=== PATIENT | female | born 1940 | race Caucasian/White ===

== ENCOUNTER → 2019-06-14 | Day surgery (SDC) | payer MEDICARE, BC, MEDICAID ==
[~2019-06-14] MED LIST: ALLOPURINOL 30300 M2 PO; AMITRIPTYLINE H10 M3 PO; ASA81BEC PO; AZELASTINE137 MCG/0. INH; BENADRYL25 MG PO; COLACE100 MG PO; ELMIRON 100 MG100 M1 PO; EMLA CREAM5 GM TOP; HEPARIN; LOPERAMIDE2 MG PO; MIDODRINE HCL 55 M1 PO; NEPHROCAPS PO; NEURONTIN 300300 M1 PO; NORCO 5-325 TA1 EAC1 PO; OMEPRAZOLE 20 M20 M1 PO; PAXIL10 MG PO; PHOSLO667 M1 PO; PLAVIX 75 MG TA75 MG PO; PROCHLORPERAZINE5 M2 PO; RENVELA0.8 GM PO; SODIUM BICARBO650 M3 PO; SODIUM CHLORIDE; TYLENOL325 MG PO; VITAMIN D400 UNIT PO; ZYVOX600 MG PO
[2019-06-14 07:16] LABS: HEMATOCRIT 33.4 % (37.0-47.0); HEMOGLOBIN 11.2 gm/dL (12.0-15.0); MCH 33.8 pg (26.0-34.0); MCHC 33.6 g/dL (28.0-37.0); MCV 100.5 fL (80.0-100.0); MPV 9.9 fl. (7.2-11.1); RBC 3.33 mil/uL (4.20-5.00); RDW-CV 14.5 % (10.5-14.5); WBC 5.4 thou/uL (4.0-11.0)
[2019-06-14 07:23] LABS: CALCIUM 9.2 mg/dL (8.5-10.1); CREATININE 3.7 mg/dL (0.6-1.3); POTASSIUM 4.1 mmol/L (3.5-5.1)
--- NOTE | 2019-06-14 13:30 | EKG ---
[place] [address] ELECTROCARDIOGRAM REPORT Name: NIHARIKA SEALS Room: [facility]#: [id number] Admission: 06/14/19 Attend Phys: Jered Varela DO Discharge: Date of : 36 Report #: [id number] THIS REPORT FOR: //name// [facility] Test Date: 2019-06-14 Test Time: 07:37:42 Pat Name: NIHARIKA SEALS Department: Room: Gender: F Gas Main And Line Fitter: MANNY : 1940 Requested By: Jered Varela Order Number: [id number] Reading MD: Tal Ramirez Measurements Intervals [place] Rate: 70 P: 25 VA: 178 QRS: 43 QRSD: 142 T: 36 QT: 445 QTc: 481 Interpretive Statements Sinus rhythm Right bundle branch block Compared to ECG 08/11/2015 08:20:03 Atrial premature complex(es) no longer present Electronically Signed On 06-14-2019 13:30:18 MEDICAL VAN DRIVER by Tal Ramirez [email or web address] <ELECTRONICALLY SIGNED> By: Tal Ramirez MD, [facility] 06/14/19 1330 0737 0737 Tal Ramirez MD, FACC /EPI
--- NOTE | 2019-06-18 07:40 | OP ---
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 OPERATION: Open revision of right upper extremity arteriovenous fistula with interposition AV graft with a 7 mm Acuseal. SURGEON: Jered Varela DO ENVIRONMENTAL COMPLIANCE OFFICER: ANABEL Regalado ANESTHESIA: LMA. ESTIMATED BLOOD LOSS: 150 mL. FLUIDS: About 500 crystalloid. URINE OUTPUT: None. SPECIMENS: None. COMPLICATIONS: None. IMPLANTS: A 7 mm Acuseal graft in the right upper arm. FINDINGS: She had two large aneurysmal segments in the fistula in the mid upper arm. I was able to resect these two normal vein proximally and distally. The aneurysmal segments again were completely resected. A 7 mm Acuseal graft was placed in an interposition fashion. There was excellent thrill noticed in the fistula and good flow in the graft. I believe the graft can be used immediately for dialysis needs. CLINICAL HISTORY: The patient is an 79-year-old woman with end-stage renal disease, who has been dialyzing through brachiobasilic right upper extremity fistula. This has become aneurysmal and have been having difficulty with access. She is in need of revision for more durable access. [address] [address] OPERATIVE REPORT Name: NIHARIKA SEALS Maylin Room: [facility]#: [id number] Admission: 06/14/19 Attend Phys: Jered Varela DO Discharge: Date of : 38 Report #: [id number] DESCRIPTION OF PROCEDURE: After informed consent was obtained, the patient was taken to the operating room and placed on the OR bed in the supine position. She was administered LMA anesthesia by the Anesthesia team. Right upper extremity was prepped and draped in usual sterile fashion. Full timeout was performed identifying correct patient and procedure. Next, a longitudinal incision was made on the medial aspect of the right upper arm. Dissection was carried down through skin and subcutaneous tissue, both sharp and electrocautery. The aneurysmal segments of the fistula were identified. It was circumferentially dissected free and completely mobilized. This was taken back to normal vein proximally and distally at the fistula. I then administered 5000 units of intravenous heparin. This was allowed to circulate for 3 minutes. I then occluded the veins proximally and distally, resected the aneurysmal segment and then tailored to 7 mm Acuseal graft, performed end-to-end anastomosis with the vein proximally and distally with running 6-0 Prolene suture. Prior to completion of the suture line, the graft was flushed with heparinized saline allowed to forward and backbled. A skin flap was created and the graft was positioned in a gentle curve in the upper arm away from the incision. The heparin was partially reversed with 40 mg of protamine. Once hemostasis was ensured in the wound, the wound was irrigated with antibiotic solution. It was then closed in layers with 2-0 and 3-0 Vicryl, 4-0 Monocryl on the skin and Dermabond was applied. All counts reported as correct x 2. She tolerated the procedure well and transferred to recovery in stable condition. I believe the graft can be used immediately for dialysis needs. It is far enough away from her incision that we should be able to access it. <ELECTRONICALLY SIGNED> By: Eliu Long MD 06/18/19 0740 1037 [id number] Varela DO /nt
== END | disposition home or self-care (01) ==
LOC: M.SUR 06:20
PROVIDERS: Surgery
DX: T82.590A Other mechanical complication of surgically created arteriovenous fistula, initial encounter (principal); N18.6 End stage renal disease; Z98.890 Other specified postprocedural states; Z79.899 Other long term (current) drug therapy; Z88.8 Allergy status to other drugs, medicaments and biological substances; Z79.82 Long term (current) use of aspirin; Y83.8 Other surgical procedures as the cause of abnormal reaction of the patient, or of later complication, without mention of misadventure at the time of the procedure

== ENCOUNTER 2019-06-16 09:30 | Inpatient (IN) | payer MEDICARE, BC, MEDICAID ==
[~2019-06-16] VITALS: Ht 160 cm; Wt 123.4 kg
[~2019-06-16 09:30] MED LIST changes: -ASA81BEC PO; -BENADRYL25 MG PO; -LOPERAMIDE2 MG PO; -NEPHROCAPS PO; -PLAVIX 75 MG TA75 MG PO; -PROCHLORPERAZINE5 M2 PO; -RENVELA0.8 GM PO; -VITAMIN D400 UNIT PO
[2019-06-16 09:44] VITALS: BP 138/66
[2019-06-16] MEDS ORDERED: VITAMIN D400 UNIT PO (10:00)
[2019-06-16] MEDS ORDERED: PROCHLORPERAZINE5 M2 PO (10:00)
[2019-06-16] MEDS ORDERED: LOPERAMIDE2 MG PO (10:01)
[2019-06-16] MEDS ORDERED: BENADRYL25 MG PO (10:01)
[2019-06-16] MEDS ORDERED: PLAVIX 75 MG TA75 MG PO (10:02)
[2019-06-16] MEDS ORDERED: COLACE100 MG PO (10:03)
[2019-06-16] MEDS ORDERED: ASA81BEC PO (10:03)
[2019-06-16] MEDS ORDERED: NEPHROCAPS PO (10:04)
[2019-06-16] MEDS ORDERED: RENVELA0.8 GM PO (10:05)
--- NOTE | 2019-06-16 10:47 | NUR ---
APPLIED PA WRAP AT 1030 2 THREE INCH PA WRAPS AND 1 FIVE INCH PA WRAP APPLIED TO RIGHT UPPER ARM NON ADHESIVE BANDAGE APPLIED TO DRAINAGE APPLIED PRIOR TO PA WRAP
[2019-06-16 10:54] LABS: ABSOLUTE EOSINOPHILS 0.2 thou/uL (0.0-0.7); ABSOLUTE LYMPHOCYTES 1.2 thou/uL (0.8-5.3); ABSOLUTE MONOCYTES 0.6 thou/uL (0.0-1.2); ABSOLUTE NEUTROPHILS 4.2 thou/uL (1.6-8.1); BASOPHILS 0.6 %; EOSINOPHILS 3.4 %; HEMATOCRIT 29.2 % (37.0-47.0); HEMOGLOBIN 9.8 gm/dL (12.0-15.0); LYMPHOCYTES 19.9 %; MCH 34.2 pg (26.0-34.0); MCHC 33.5 g/dL (28.0-37.0); MONOCYTES 9.5 %; MPV 9.9 fl. (7.2-11.1); NUCLEATED RBCS 0 /100WBC; PLATELET COUNT* 185 thou/uL (150-400); POLYS 66.6 %; RBC 2.87 mil/uL (4.20-5.00); RDW-CV 15.4 % (10.5-14.5); WBC 6.3 thou/uL (4.0-11.0)
[2019-06-16 11:06] LABS: CALCIUM 8.3 mg/dL (8.5-10.1); POTASSIUM 5.1 mmol/L (3.5-5.1)
[2019-06-16 11:07] LABS: CREATININE 5.8 mg/dL (0.6-1.3)
[2019-06-16 11:11] LABS: TOTAL BILIRUBIN 0.3 mg/dL (<0.1-1.0); TOTAL PROTEIN 6.7 g/dL (6.4-8.2)
[2019-06-16 13:36] VITALS: BP 102/45
[2019-06-16 17:50] VITALS: BP 108/46
--- NOTE | 2019-06-16 20:00 | NUR ---
RECEIVED REPORT AND ASSUMED CARE OF PT, ASSESSMENT COMPLETED. RT ARM ACEWRAP DRY AND INTACT. MONICA COMPRESSED WITH SEROSANGUNIOUS DRAINAGE. C/O LT HAND NUMBNESS, WHICH IS NOT NEW FOR HER. O2 ON AT 2L/NC WITH CAPNOGRAPHY ON. TELEMETRY ON SHOWING SR WITH VERY FREQ PAC. WILL CONT TO MONITOR AND ASSIST NEEDED.
--- NOTE | 2019-06-16 20:18 | NUR ---
PT VSS, POST AV FISTULA GRAFT REPAIR, SR WITH PACS ON TELE, A&OX4, NC@3L POST PROCEDURE, PATIENT ON O2 MONITOR AND CAPNOGRAPHY POST PROCEDURE. SURGICAL REPAIR ON RIGHT ARM, MONICA DRAIN- SANGUINEOUS DRAINAGE, WOUND WRAPPED, PATIENT ORIENTED TO ROOM, DAUGHTER AT BEDSIDE, POSSESSIONS AND CALL LIGHT WITHIN REACH.
[2019-06-16 23:25] VITALS: BP 97/44
[2019-06-17 04:30] VITALS: BP 110/37
[2019-06-17 04:44] LABS: HEMATOCRIT 27.9 % (37.0-47.0); HEMOGLOBIN 9.1 gm/dL (12.0-15.0); MCH 33.4 pg (26.0-34.0); MCHC 32.6 g/dL (28.0-37.0); MCV 102.6 fL (80.0-100.0); MPV 9.7 fl. (7.2-11.1); RBC 2.72 mil/uL (4.20-5.00); RDW-CV 15.4 % (10.5-14.5); WBC 5.3 thou/uL (4.0-11.0)
[2019-06-17 05:18] LABS: CALCIUM 8.1 mg/dL (8.5-10.1); CREATININE 6.6 mg/dL (0.6-1.3); MAGNESIUM 2.1 mg/dL (1.8-2.4); PHOSPHORUS* 7.2 mg/dL (2.5-4.9); POTASSIUM 5.9 mmol/L (3.5-5.1)
--- NOTE | 2019-06-17 06:24 | NUR ---
AWAKE FREQ TONIGHT. C/O PAIN TO YENI LOWER LEGS AND LT HAND, PO MEDS EFFECTIVE. ASSISTED WITH REPOSITIONING IN BED. TELEMETRY SHOWING SR WITH VERY FREQ PAC, OCC RATE INTO THE 40'S BUT NOT SUSTAINED. O2 ON AT 2L/NC. NO CHANGE IN ASSESSMENT. HS GOALS OF REST AND SAFETY ACHIEVED. HOURLY ROUNDING OBSERVED.
[2019-06-17 08:00] VITALS: BP 114/39
--- NOTE | 2019-06-17 20:00 | NUR ---
RECEIVED REPORT AND ASSUMED CARE OF PT, ASSESSMENT COMPLETED. ACEWRAP DRSG DRY AND INTACT TO RT UPPER ARM. ABLE TO HEAR BRUIT THROUGH DRSG. O2 ON AT 2L/NC, NO SOA NOTED, PT STATES WEARS O2 AT HOME ESPECIALLY WHEN SLEEPING. WILL CONT TO MONITOR PT AND ASSIST NEEDED.
[2019-06-18 00:30] VITALS: BP 90/30
[2019-06-18 04:00] VITALS: BP 98/34
[2019-06-18 04:26] LABS: HEMATOCRIT 26.7 % (37.0-47.0); HEMOGLOBIN 8.8 gm/dL (12.0-15.0); MCH 33.6 pg (26.0-34.0); MCHC 32.9 g/dL (28.0-37.0); MCV 102.2 fL (80.0-100.0); MPV 9.6 fl. (7.2-11.1); RBC 2.62 mil/uL (4.20-5.00); WBC 5.3 thou/uL (4.0-11.0)
[2019-06-18 04:33] LABS: CALCIUM 8.8 mg/dL (8.5-10.1); MAGNESIUM 1.8 mg/dL (1.8-2.4); POTASSIUM 5.4 mmol/L (3.5-5.1)
--- NOTE | 2019-06-18 05:32 | NUR ---
SLEPT WELL TONIGHT. PT REFUSING TO TURN IN BED BUT DID SHIFT SELF FOR COMFORT. EDUCATION GIVEN. NO CHANGE IN ASSESSMENT. HS GOALS OF REST AND SAFETY ACHIEVED. HOURLY ROUNDING OSBERVED.
--- NOTE | 2019-06-18 07:40 | CON ---
[address] [address] CONSULTATION Name: NIHARIKA SEALS Room: [address] IN M.R.#: [id number] Admission: 06/16/19 Attend Phys: David Cadena MD Discharge: Date of : 38 Report #: [id number] THIS REPORT FOR: //name// CC: David Castillo DATE OF SERVICE: 06/16/2019 REASON FOR CONSULTATION: Hematoma, right upper extremity. HISTORY OF PRESENT ILLNESS: The patient is an 79-year-old female well known to me for difficult upper extremity AV dialysis access. She underwent revision of her right upper extremity AV graft by my partner, Dr. Varela, on Monday, was seen at the dialysis center today and during use, apparently had movement of the arm or position change and began having infiltration. There was a large hematoma forming and the patient was taken emergently to the Emergency Room. I was called with the information that she had swelling and expanding hematoma and requested that they hold pressure and/or wrap the arm with Yusef wrap and came to the bedside. The patient was evaluated and noted to have good color of her hand. She did have a large, at least softball-sized hematoma underlying her incision. The graft was noted to have a good thrill and bruit present. The incision appeared to be intact. The patient was in no acute distress, but in some discomfort. The patient reported the same story as the dialysis center. Because of the size of the hematoma and the appearance of the overlying skin, I was consulted to evaluate for possible evacuation. PAST MEDICAL HISTORY: Significant for morbid obesity, hypertension, and end-stage renal disease with difficult access. PAST SURGICAL HISTORY: Noted for multiple revisions of left hand and right upper extremity AV access, multiple tunneled dialysis catheters. SOCIAL HISTORY: The patient denies smoking, denies alcohol. ALLERGIES: No known drug allergies. MEDICATIONS: Please see med rec. REVIEW OF SYSTEMS: A 10-point review of systems is negative except as in HPI. PHYSICAL EXAMINATION: VITAL SIGNS: Afebrile, vital signs stable. GENERAL: The patient is in no acute distress, alert and oriented x 3. HEART: Regular rate and rhythm. LUNGS: Clear. ABDOMEN: Soft, nondistended, [place] [address] CONSULTATION Name: ARNELNIHARIKA L Room: [address]#: [id number] Admission: 06/16/19 Attend Phys: David Cadena MD Discharge: Date of : 38 Report #: [id number] EXTREMITIES: Focused exam of the right upper extremity demonstrates a large hematoma underlying a recent incision. There is ecchymosis of the skin and the skin is taut. The graft is noted to have an excellent thrill and bruit by exam. The patient does not have IV access. IMPRESSION AND PLAN: The patient is an 79-year-old female with a large hematoma of the right upper extremity status post arteriovenous graft revision. Recommendation for evacuation of hematoma and tunneled dialysis catheter placement was made. Risks and benefits were discussed with the patient. The patient wished to proceed and will be taken urgently to the operating room. Thank you for allowing me to participate in this patient's care. Please do not hesitate to call should you have further questions or concerns. <ELECTRONICALLY SIGNED> By: Eliu Long MD 06/18/19 0740 1558 [id number] Olsen DO /nt
--- NOTE | 2019-06-18 07:40 | OP ---
[address] [address] OPERATIVE REPORT Name: ARNELNIHARIKA L Room: [address] IN .R.#: [id number] Admission: 06/16/19 Attend Phys: David Cadena MD Discharge: Date of : 38 Report #: [id number] THIS REPORT FOR: //name// CC: David Castillo DATE OF SERVICE: 06/16/2019 PREOPERATIVE DIAGNOSIS: Large hematoma, right upper extremity arteriovenous graft. POSTOPERATIVE DIAGNOSIS: Large hematoma, right upper extremity arteriovenous graft. SURGEON: Nathan Olsen DO CLINICAL APPLICATION MANAGER: None. PROCEDURE: 1. Evacuation of large right upper extremity hematoma with placement of #19 Emory drain. 2. Tunneled dialysis catheter placement under ultrasound and fluoroscopic guidance. ESTIMATED BLOOD LOSS: Minimal. Large hematoma was evacuated that was approximately 500-600 mL of thrombosed hematoma. SPECIMEN: None. COMPLICATIONS: None. CONDITION: Stable. DISPOSITION: Floor. INDICATION FOR PROCEDURE AND CONSENT: The patient is an 79-year-old female. Please see my consultation report for full story; however, the patient had presented with severe right upper extremity hematoma. Recommendation for evacuation of hematoma tunneled dialysis catheter placement were made. Risks and benefits were discussed. The patient wished to proceed, was consented and scheduled. PROCEDURE IN DETAIL: After timeout was performed, the patient was placed in the supine position with sterile prep and drape of the anterior neck, chest, and right upper extremity circumferentially. A 15-blade scalpel was used to reopen her previous arm incision and the large volume hematoma was evacuated. There [facility] [address] [place] [address] OPERATIVE REPORT Name: NIHARIKA SEALS Room: [address] IN [facility].#: [id number] Admission: 06/16/19 Attend Phys: David Cadena MD Discharge: Date of : 38 Report #: [id number] was significant cutaneous flap over to her visible AV graft. Once the entire hematoma was evacuated, 2 liters of antibiotic saline were used to irrigate the wound. No active bleeding was identified from either an access point either in anastomosis or from skin. A small amount of cautery was used in 2-3 small areas of oozing. At this point, I felt that likely this was related to her Plavix and aspirin therapy. There is no surgical bleeding could be identified. I repositioned the graft as laterally as I could and formed a tunnel using the cutaneous flap to the subcutaneous tissue with 2-0 Vicryls. I then, within the space, placed a #19 Emory drain and again tried to close as much space as possible with 2-0 Vicryl sutures. I then reapproximated the skin with matt. I then turned my attention to the tunneled dialysis catheter placement. Clearly, she had this right upper extremity AV graft will needed to be rest and heal prior to use. I ultrasounded the right internal jugular vein, which was noted to be patent and compressible. Seldinger technique was used to place a needle and wire. A small transverse incision was made and introducer sheath advanced over the wire. A second wire was advanced into the vena cava. The tract was dilated and the dual lumen Bard RetrO catheter advanced over both wires into position. Fluoroscopy was then used to optimize the tip placement. An exit site was selected on the anterior chest wall. A small transverse incision was made and the tract was anesthetized with lidocaine. The catheter was then tunneled out on the chest wall without difficulty. Each port was then aspirated and flushed with heparinized saline and then locked with heparinized saline, 1000 units/mL. The catheter was secured and the access site closed with 3-0 Monocryl suture. Sterile dressing was applied. On the right upper extremity, drain was attached and a compressive dressing was applied to the arm. The patient was transferred to recovery in stable condition. <ELECTRONICALLY SIGNED> By: Eliu Long MD 06/18/19 0740 1602 [id number] Olsen DO /aline
--- NOTE | 2019-06-18 11:50 | NUR ---
PATIENT RETURNED FROM DIALYSIS VIA HOSPITAL BED AND NOTE KEEPER. OX4, ABLE TO COMMUNICATE NEEDS TO STAFF. NOTE KEEPER GAVE REPORT: VSS, 3.5 L REMOVED, NO C/O PAIN, SOA, N/V OR OTHER DISTRESS. NOTE KEEPER EXPRESSED CONCERN THAT PATIENT IS VERY WEAK AND MAY NOT BE ABLE TO CARE FOR HERSELF AT HOME. ASSESSED PATIENT, PERFORMED DRESSING CHANGE TO R ARM ORDERED. TRANSFERRED TO CHAIR WITH MAX ASSIST. PATIENT NOT ABLE TO PROVIDE ANY HELP OTHER THAN STAND/PIVOT WITH MAX ASSIST FROM STAFF. PATIENT IN RECLINER CHAIR, LEGS ELEVATED, WITH CALL LIGHT IN REACH.
[2019-06-18 12:30] VITALS: BP 107/56
[2019-06-18 12:55] VITALS: BP 98/34
--- NOTE | 2019-06-18 13:48 | NUR ---
ORDERS NOTED FOR DC HOME WITH HH, MET WITH PT. SHE WANTS TO USE [facility]. CALLED AND FAXED DC ORDERS TO [facility]. PT DENIES OTHER NEEDS
--- NOTE | 2019-06-18 16:02 | NUR ---
TRANSFERRED PATIENT BACK TO BED WITH MAX ASSIST. PATIENT IS NOT ABLE TO USE HER OWN STRENGTH TO ASSIST WITH TRANSFERRING. PATIENT STATES, "I FEEL VERY WEAK." PATIENT HAS SEVERAL STEPS FROM BEDROOM TO BATHROOM. DAUGHTER EXPRESSES CONCERN FOR PLAN TO DC D/T PATIENT'S WEAKNESS. REVIEWED PLAN WITH END USER CONSULTANT. COMMUNICATED WEAKNESS TO PHYSICIAN. ORDERS REC'D FOR PT/OT EVAL AND OK FOR PATIENT TO STAY IF WEAK. PATIENT AGREES THAT STAYING ONE MORE DAY MAY HELP TO GAIN STRENGTH. CONTACTED PATIENT'S DTR TO UPDATE HER THAT PATIENT WILL STAY.
[2019-06-18 20:00] VITALS: BP 83/48
--- NOTE | 2019-06-18 20:00 | NUR ---
RECEIVED REPORT AND ASSUMED CARE OF PT, ASSESSMENT COMPLETED. RT ARM DRSG DRY AND INTACT. C/O YENI LOWER LEG PAIN AND ITCHING. LOTION RUBBED ONTO LEGS. WILL CONT TO MONITOR AND ASSIST NEEDED.
[2019-06-19] VITALS: BP 100/24
[2019-06-19 04:00] VITALS: BP 107/37
--- NOTE | 2019-06-19 05:40 | NUR ---
AWAKE FREQ TONIGHT. HAVING PAIN INTO HER LEGS ESPECIALLY THE RIGHT LEG. PO PAIN MED GIVEN AND EFFECTIVE. RT UPPER ARM DRSG REMAINS INTACT. GOOD BRUIT. ELEVATED ON PILLOW. HS GOALS OF REST AND SAFETY ACHIEVED. HOURLY ROUNDING OBSERVED.
[2019-06-19 08:15] VITALS: BP 100/37
--- NOTE | 2019-06-19 13:54 | NUR ---
I ASSUMED CARE OF THE PATIENT AT 0800. SHE IS ALERT AND ORIENTED X4 AND IS UP WITH ASSISTANCE OF 1, WALKER AND GAIT BELT. BED IS IN THE LOW LOCKED POSITION AND CALL LIGHT IS IN REACH. HOURLY ROUNDING IS COMPLETED AND PATIENT NEEDS ARE MET. PAIN IS MANAGED WITH PRN MEDS. PATIENT WAS TRANSFERED TO [facility] AND REPORT WAS CALLED TO DIANE. SHE IS PROGRESSING TOWARDS HER GOALS.
[2019-06-19 16:00] VITALS: BP 120/37
--- NOTE | 2019-06-19 18:20 | NUR ---
PATIENT ARRIVED TO UNIT AT APPROX 1320. REPORT FROM LUIS F BELCHER. PATIENT ALERT AND ORIENTED X4. CHARTING REVIEWED. NO COMPLAINTS FOR THIS NURSE. UP WITH ASSIST OF ONE USING GAIT BELT AND WALKER. FALL PRECAUTIONS IN PLACE. CALL LIGHT WITHIN REACH. HOURLY ROUNDS COMPLETED. WILL CONTINUE WITH PLAN OF CARE.
[2019-06-19 21:00] VITALS: BP 116/49
[2019-06-20 07:50] VITALS: BP 95/55
--- NOTE | 2019-06-20 14:24 | NUR ---
SW called and spoke with [facility] to inform of pt did not dc after all and plan would be for pt to be ready to dc tomorrow. Lisbet with intake of [facility] said that is okay for [facility] to still be able to accept pt for services but that MARY/ALYCE will need to send new orders (pt active status ran out while pt was in the hospital). Pt dc orders to be faxed to [facility] upon dc. ph [phone] fax [phone]
--- NOTE | 2019-06-20 19:05 | NUR ---
ASSUMED CARE OF PATIENT AT APPROX 0730. ALERT AND ORIENTED X4. ASSESSMENT COMPLATED AND CHARTED. VSS ON 2 LITERS 02 PRN. NO COMPLAINTS OF PAIN THIS SHIFT. PATIENT UP WITH 1 USING GAIT BELT AND WALKER, TO THE CHAIR THIS MORNING. BACK TO BED AFTER LUNCH TODAY. NO OTHER COMPLAINTS THIS SHIFT. FALL PRECAUTIONS IN PLACE. CALL LIGHT WITHIN REACH. HOURLY ROUNDS COMPLETED. WILL CONTINUE WITH PLAN OF CARE.
[2019-06-20 20:00] VITALS: BP 95/30
[2019-06-21 07:40] VITALS: BP 94/43
--- NOTE | 2019-06-21 09:24 | CON ---
[address] [address] CONSULTATION Name: NIHARIKA SEALS Room: [address] IN .R.#: [id number] Admission: 06/16/19 Attend Phys: David Cadena MD Discharge: Date of : 38 Report #: [id number] THIS REPORT FOR: //name// CC: David Castillo DATE OF SERVICE: 06/17/2019 NEPHROLOGY CONSULTATION CONSULTING PHYSICIAN: David Cadena MD. REASON FOR NEPHROLOGY CONSULTATION: ESRD, for hemodialysis needs. REASON FOR ADMISSION: Right arm swelling. HISTORY OF PRESENT ILLNESS: This is an 79-year-old female. She has past medical history of end-stage renal disease, on hemodialysis. Her last dialysis was yesterday. She is on hemodialysis every Monday, Monday and Monday, but she went for dialysis yesterday because of holiday schedule and recent AV fistula dysfunction. She had a graft revision done last Monday by Dr. Varela, came in because of infiltration of her AV access. The patient went for dialysis yesterday 10 minutes into treatment. Her access over her AV graft site started swelling up. She developed a huge hematoma at least a softball size and she was sent to [facility] where almost immediately she was taken to the OR by Dr. Olsen, and the hematoma was evacuated, about 500-600 mL of blood was removed and the graft was also repositioned. The graft was found to be intact. It had a good bruit in it. Also, she underwent placement of a right IJ tunneled dialysis catheter. She has been short of breath and also missed her dialysis yesterday and she will be dialyzed today. Her potassium is also high at 5.9. She has a lot of tenderness at the site of her right IJ tunneled dialysis catheter, also in the right arm. ALLERGIES: CODEINE. REVIEW OF SYSTEMS: As mentioned in history of present illness, otherwise 10-point review of systems done is negative. HOME MEDICATIONS: Include cholecalciferol, prochlorperazine, loperamide, diphenhydramine, clopidogrel, aspirin, docusate, sevelamer, allopurinol, lidocaine, gabapentin, heparin, midodrine, omeprazole, paroxetine, acetaminophen, and hydrocodone. PAST MEDICAL AND SURGICAL HISTORY: Includes ESRD, on hemodialysis. Gallbladder removal, hysterectomy, cervical cancer, spine surgery, left index finger amputation, skin cancer, morbid obesity, [place] [address] CONSULTATION Name: NIHARIKA SEALS Room: [address] IN [facility]#: [id number] Admission: 06/16/19 Attend Phys: David Cadena MD Discharge: Date of : 38 Report #: [id number] revision on 06/14/2019, neuropathy and MDD. FAMILY HISTORY: Reviewed and noncontributory. SOCIAL HISTORY: She lives at home by herself. Does not smoke or drink alcohol or use illicit drugs. PHYSICAL EXAMINATION: VITAL SIGNS: Blood pressure is 110/37 and oxygenation on 2 liters nasal cannula is 99%, temperature 37.1, pulse rate 66, respiratory rate is 20. GENERAL: She is awake, alert, oriented x 3, no acute distress. HEAD AND EYES: Atraumatic, normocephalic. EARS, NOSE, AND THROAT: Normal ears and nose. Mucous membranes are moist. NECK: No JVD. CHEST: Bilaterally diminished breath sounds anteriorly. CARDIOVASCULAR: S1, S2 normal. No murmurs heard. ABDOMEN: Soft, nondistended, nontender. Bowel sounds. EXTREMITIES: 1+ lower extremity edema. Right arm has a good bruit at the site of AV graft and matt present in the proximal part of the arm. A bruise present also in the proximal part of the arm. Current dialysis access is right arm AV graft, which is currently going to get rested and right IJ tunneled dialysis catheter. NEUROLOGICAL FUNCTION: Gross neurological function is intact. PSYCHIATRIC: Mood and affect seem to be normal. LABORATORY DATA: Hemoglobin is 9.1, potassium was 5.9, BUN of 48 and phosphorus 7.2. Other labs are reviewed. IMAGING: Chest x-ray was reviewed. ASSESSMENT: 1. End-stage renal disease, on hemodialysis, normally every Monday, Monday, Monday. 2. Infiltration of her AV access. 3. Recent revision of her AV graft was on 06/14/2019. 4. Hypertension. 5. Fluid overload. 6. History of chronic diastolic congestive heart failure with exacerbation. 7. Peripheral neuropathy. 8. Hyperkalemia. 9. Secondary hyperparathyroidism. 10. Anemia of chronic kidney disease. PLAN: 1. The patient will be dialyzed today. Her potassium is high, we will try to remove as much fluid as possible. She will be again [place] [address] CONSULTATION Name: NIHARIKA SEALS Room: [address] IN .R.#: [id number] Admission: 06/16/19 Attend Phys: David Cadena MD Discharge: Date of : 38 Report #: [id number] because of holiday schedule as outpatient, that is the schedule she was supposed to follow. 2. She should be on a renal low potassium diet. 3. I have decrease gabapentin dose as well as allopurinol dose, renally adjusted them. 4. We will give her erythropoietin. 5. Up titrate her binders to help with the phosphorus. Thank you for this consultation. We will continue to follow for her dialysis needs. <ELECTRONICALLY SIGNED> By: Kimberly Felton MD 06/21/19 0924 0938 [id number] Felton MD /nt
--- NOTE | 2019-06-21 13:34 | NUR ---
Nutrition: Pt admitted with fistula hematoma. Seen for high BMI. recent wt gain is fluid-related. On fluid restriction now. ESRD on HD. Wt: 272#. Renal diet ordered. Albumin 3. Consider Mild risk.
--- NOTE | 2019-06-21 15:47 | NUR ---
PT'S DTR,Louis REQUESTED TO [facility] W/ALYCE, Louis WOULD LIKED PT TO GO TO [facility] FOR SNF. LOUIS STATED PT HAS STAYED THERE IN THE PAST AND SHE CALLED THE FACILITY TO SEE IF THEY HAD BED AND THEY TOLD HER TO HAVE HOSPITAL TO SEND REFERRAL. CM FAXED REFERRAL. (F) [phone].
--- NOTE | 2019-06-21 17:11 | NUR ---
PT REMAINED ALERT AND ORIENTED. PT HAD DIALYSIS TODAY. PT DENIED ANY PAIN THIS SHIFT. PT UP FOR MEALS. FALL RISK PRECAUTIONS IN PLACE. HOURLY ROUNDING COMPLETED. WILL CONTINUE TO MONITOR.
[2019-06-21 19:08] VITALS: BP 98/34
[2019-06-21 19:33] VITALS: BP 98/34
--- NOTE | 2019-06-21 19:33 | NUR ---
FACILITY ACCEPTED PT. CHART COPIED. DPOA NOTIFIED AND WILL SOCIAL WORK SUPERVISOR PT BELONGINGS. IV REMOVED. TESSIO IN PLACE. FALL RISK PRECAUTIONS IN PLACE. HOURLY ROUNDING COMPLETED. PT LEFT VIA WHEELCHAIR WITH NURSING STAFF AND TRANSPORTER TO FACILITY.
== END 2019-06-21 19:36 | DRG 252 ==
LOC: M.ERS 09:30 → M.2W 12:06 → M.TBA-ER 12:06 → M.2W 16:50 → M.ORTHSURG 06-19 13:26
PROVIDERS: Personal Emergency Response Attendant; ADMIT Internal Medicine
PROC: 03CY3ZZ Extirpation of Matter from Upper Artery, Percutaneous Approach (ICD-10-PCS; principal; 2019-06-16)
PROC: B548ZZA Ultrasonography of Superior Vena Cava, Guidance (ICD-10-PCS; principal; 2019-06-16)
PROC: 0JH63XZ Insertion of Tunneled Vascular Access Device into Chest Subcutaneous Tissue and Fascia, Percutaneous Approach (ICD-10-PCS; principal; 2019-06-16)
PROC: 02HV33Z Insertion of Infusion Device into Superior Vena Cava, Percutaneous Approach (ICD-10-PCS; principal; 2019-06-16)
PROC: B5181ZA Fluoroscopy of Superior Vena Cava using Low Osmolar Contrast, Guidance (ICD-10-PCS; principal; 2019-06-16)
PROC: 5A1D70Z Performance of Urinary Filtration, Intermittent, Less than 6 Hours Per Day (ICD-10-PCS; 2019-06-21)
DX: T82.398A Other mechanical complication of other vascular grafts, initial encounter (principal); N18.6 End stage renal disease; I50.33 Acute on chronic diastolic (congestive) heart failure; I13.2 Hypertensive heart and chronic kidney disease with heart failure and with stage 5 chronic kidney disease, or end stage renal disease; N25.81 Secondary hyperparathyroidism of renal origin; E44.1 Mild protein-calorie malnutrition; Z68.42 Body mass index [BMI] 45.0-49.9, adult; Z99.2 Dependence on renal dialysis; S40.021A Contusion of right upper arm, initial encounter; E66.01 Morbid (severe) obesity due to excess calories; E87.70 Fluid overload, unspecified; D63.1 Anemia in chronic kidney disease; E87.5 Hyperkalemia; G62.9 Polyneuropathy, unspecified; F32.9 Major depressive disorder, single episode, unspecified; Z90.49 Acquired absence of other specified parts of digestive tract; Z90.710 Acquired absence of both cervix and uterus; Z88.6 Allergy status to analgesic agent; Z85.41 Personal history of malignant neoplasm of cervix uteri; Z89.022 Acquired absence of left finger(s); Z79.899 Other long term (current) drug therapy; X58.XXXA Exposure to other specified factors, initial encounter; Y93.89 Activity, other specified; Y92.89 Other specified places as the place of occurrence of the external cause; Y99.8 Other external cause status